=== PATIENT | female | born 1980 | race Caucasian/White ===

== ENCOUNTER → 2018-05-29 | Outpatient (CLI) | payer OTHER ==
[~2018-05-29] MED LIST: CIT20 PO; MET800 PO; PER PO
--- NOTE | 2018-05-29 15:55 | RADIOLOGY IMAGING REPORT ---
FACILITY: [facility] [place] PATIENT NAME: Zuri Burger : 1980 MR: [id number] V: [id number] EXAM DATE: ORDERING PHYSICIAN: KALEY BIRD TECHNOLOGIST: Location: [facility] [place] Patient: Zuri Burger : 1980 Visit/Account:[id number] Date of Sevice: 05/29/2018 VENOUS DOPP LOW LEFT EXTREMITY HISTORY: Left leg edema, stiffness, erythema, and warmth COMPARISON: None. FINDINGS: Grayscale, duplex and color Doppler interrogation of the left lower extremity deep veins from common femoral vein to proximal calf was completed. The greater saphenous vein in the proximal thigh was shavonne luated using similar technique. Common femoral vein - Negative. Femoral vein - Negative. Deep femoral vein - Negative. Popliteal vein - Negative. Visualized deep calf veins - Negative. Popliteal fossa: Negative. Greater saphenous vein in the proximal thigh: Negative. IMPRESSION: No evidence for DVT. Report Dictated By: Dexter Charlton MD at 05/29/2018 3:51 PM Report E-Signed By: Dexter Charlton MD at 05/29/2018 3:51 PM [id number]
== END ==
LOC: US 14:49
PROVIDERS: ATTEND Nurse Practitioner Family
DX: M79.605 Pain in left leg (principal)

== ENCOUNTER → 2018-09-26 | Outpatient (CLI) | payer OTHER | LOC: RESP 07:34 | PROVIDERS: ATTEND Nurse Practitioner Family | DX: G47.33 Obstructive sleep apnea (adult) (pediatric) (principal) ==

== ENCOUNTER 2018-10-21 18:26 | Emergency (ER) | payer OTHER ==
--- NOTE | 2018-10-21 18:31 | ER Report ---
History and Physical Time Seen By MD: 18:31 HPI/ROS CHIEF COMPLAINT: Suicidal ideation HISTORY OF PRESENT ILLNESS: This is a 38-year-old female presents to the emergency department for suicidal ideation. Patient states that she's had a long history of depression, suicidal thoughts in the past, however the last couple of weeks she's had increased suicidal thoughts with increased depression. She states that today she got off the phone with her insurance company, they were not going to pay a home sleep study Bill, she became angry and depressed and used a parous scissors and lacerated her left forearm, she has multiple superficial lacerations, she did clean them up at home, no active bleeding. Most recently her thoughts were to use the exhaust of her car to kill her self. Patient is very tearful, would like to be admitted to the behavioral health unit. No fevers or chills. No nausea or vomiting. Chest pain or shortness breath. REVIEW OF SYSTEMS: Constitutional: No fever, no chills. Eyes: No discharge. ENT: No sore throat. Cardiovascular: No chest pain, no palpitations. Respiratory: No cough, no shortness of breath. Gastrointestinal: No abdominal pain, no vomiting. Genitourinary: No hematuria. Musculoskeletal: No back pain. Skin: As above. Neurological: No headache. Psychological: As above. Allergies: Coded Allergies: No Known Drug Allergies (Unverified , 10/09/12) Home Meds Reported Medications Oxycodone/Acetaminophen (OXYCODONE/ACETAMINOPHEN 5MG/325 MG) 5 Mg/325 Mg Tab, 1 TAB PO Q6H PRN, #15 10/09/12 Metaxalone (Skelaxin) 800 Mg Tab, 800 MG PO TID PRN, #30 10/09/12 Citalopram Hydrobromide (Celexa) 20 Mg Tab, 40 MG PO DAILY 10/09/12 Past Medical/Surgical History Patient has a past medical and surgical history of back pain, wears glasses, depression, previous suicide attempt, with some teeth extraction. Reviewed Nurses Notes: Yes Hx Smoking: No Hx Substance Use Disorder: No Constitutional Vital Sign - Last 24 Hours 10/21/18 18:32 Pulse 101 Resp 24 B/P (MAP) 143/108 Pulse Ox 90 O2 Delivery Room Air Physical Exam General Appearance: The patient is alert, has no immediate need for airway protection and no signs of toxicity. Eyes: Pupils equal and round no pallor or injection. ENT, Mouth: Mucous membranes are moist. Respiratory: There are no retractions, lungs are clear to auscultation. Cardiovascular: Regular rate and rhythm. Gastrointestinal: Abdomen is soft and non tender, no masses, bowel sounds normal. Neurological: Alert and oriented 4. Moving all extremities. Following all commands. No focal neuro deficits. Skin: Multiple superficial lacerations to the right forearm, no active bleeding, nothing suturable, CMS intact. Musculoskeletal: Neck is supple non tender. Extremities are nontender, nonswollen and have full range of motion. Psychological: Patient is tearful, she is making eye contact, very forthcoming with her plans and her suicidal thoughts. She states that she's been under increased stress. DIFFERENTIAL DIAGNOSIS: After history and physical exam differential diagnosis was considered for suicidal ideation. Medical Decision Making Data Points Result Diagram: 10/21/18 18510/21/18 185 Laboratory Hematology Test 10/21/18 18:33 10/21/18 18:43 10/21/18 18:51 Urine Color Yellow Urine Clarity Slightly-cloudy Urine pH 5.0 pH (4.8-9.5) Urine Specific [place] 1.021 Urine Protein Negative mg/dL (NEGATIVE) Urine Glucose (UA) Negative mg/dL (NEGATIVE) Urine Ketones Negative mg/dL (NEGATIVE) Urine Blood Negative (NEGATIVE) Urine Nitrite Negative (NEGATIVE) Urine Bilirubin Negative (NEGATIVE) Urine Urobilinogen 2.0 mg/dL (0.2-1.9) Urine Leukocyte Esterase Trace (NEGATIVE) Urine RBC 1 /HPF (0-2/HPF) Urine WBC 2 /HPF (0-5/HPF) Urine Squamous Epithelial Cells Many /LPF (</=FEW) Urine Bacteria Few /HPF (NONE-FEW) Urine Mucus None /HPF (NONE-FEW) Urine HCG, Qualitative Negative (NEGATIVE) Urine Opiates Screen Negative Urine Barbiturates Screen Negative Ur Tricyclic Antidepressants Screen Negative Urine Phencyclidine Screen Negative Urine Amphetamines Screen Negative Urine Benzodiazepines Screen Negative Urine Cocaine Screen Negative Urine Cannabinoids Screen Negative Red Blood Count 5.13 M/uL (4.17-5.56) Mean Corpuscular Volume 91.2 fL (80.0-96.0) Mean Corpuscular Hemoglobin 30.8 pg (26.0-33.0) Mean Corpuscular Hemoglobin Concent 33.8 g/dL (32.0-36.0) Red Cell Distribution Width 13.0 % (11.5-14.5) Mean Platelet Volume 6.8 fL (7.2-11.1) Neutrophils (%) (Auto) 67.4 % (39.4-72.5) Lymphocytes (%) (Auto) 25.0 % (17.6-49.6) Monocytes (%) (Auto) 5.6 % (4.1-12.4) Eosinophils (%) (Auto) 1.6 % (0.4-6.7) Basophils (%) (Auto) 0.4 % (0.3-1.4) Nucleated RBC Relative Count (auto) 0.1 /100WBC Neutrophils # (Auto) 7.4 K/uL (2.0-7.4) Lymphocytes # (Auto) 2.7 K/uL (1.3-3.6) Monocytes # (Auto) 0.6 K/uL (0.3-1.0) Eosinophils # (Auto) 0.2 K/uL (0.0-0.5) Basophils # (Auto) 0.0 K/uL (0.0-0.1) Nucleated RBC Absolute Count (auto) 0.01 K/uL Sodium Level 138 mmol/L (137-145) Potassium Level 3.8 mmol/L (3.5-5.0) Chloride Level 100 mmol/L (98-107) Carbon Dioxide Level 28 mmol/L (22-31) Blood Urea Nitrogen 14 mg/dl (7-18) Creatinine 0.70 mg/dl (0.52-1.04) Glomerular Filtration Rate Calc > 60.0 Random Glucose 89 mg/dl (75-110) Calcium Level 9.9 mg/dl (8.4-10.2) Magnesium Level 1.9 mg/dl (1.7-2.2) Total Bilirubin 0.3 mg/dl (0.2-1.3) Aspartate Amino Transf (AST/SGOT) 25 U/L (0-35) Alanine Aminotransferase (ALT/SGPT) 26 U/L (0-56) Alkaline Phosphatase 107 U/L (0-126) Total Protein 8.2 g/dl (6.3-8.2) Albumin 4.6 g/dl (3.5-5.0) Salicylates Level < 10 mg/L Salicylate Last Dose Date unk Acetaminophen Level < 10 ug/ml Serum Alcohol < 10 mg/dl Chemistry Test 10/21/18 18:33 10/21/18 18:43 10/21/18 18:51 Urine Color Yellow Urine Clarity Slightly-cloudy Urine pH 5.0 pH (4.8-9.5) Urine Specific [place] 1.021 Urine Protein Negative mg/dL (NEGATIVE) Urine Glucose (UA) Negative mg/dL (NEGATIVE) Urine Ketones Negative mg/dL (NEGATIVE) Urine Blood Negative (NEGATIVE) Urine Nitrite Negative (NEGATIVE) Urine Bilirubin Negative (NEGATIVE) Urine Urobilinogen 2.0 mg/dL (0.2-1.9) Urine Leukocyte Esterase Trace (NEGATIVE) Urine RBC 1 /HPF (0-2/HPF) Urine WBC 2 /HPF (0-5/HPF) Urine Squamous Epithelial Cells Many /LPF (</=FEW) Urine Bacteria Few /HPF (NONE-FEW) Urine Mucus None /HPF (NONE-FEW) Urine HCG, Qualitative Negative (NEGATIVE) Urine Opiates Screen Negative Urine Barbiturates Screen Negative Ur Tricyclic Antidepressants Screen Negative Urine Phencyclidine Screen Negative Urine Amphetamines Screen Negative Urine Benzodiazepines Screen Negative Urine Cocaine Screen Negative Urine Cannabinoids Screen Negative White Blood Count 10.9 k/uL (4.5-11.0) Red Blood Count 5.13 M/uL (4.17-5.56) Hemoglobin 15.8 g/dL (12.0-16.0) Hematocrit 46.7 % (34.0-47.0) Mean Corpuscular Volume 91.2 fL (80.0-96.0) Mean Corpuscular Hemoglobin 30.8 pg (26.0-33.0) Mean Corpuscular Hemoglobin Concent 33.8 g/dL (32.0-36.0) Red Cell Distribution Width 13.0 % (11.5-14.5) Platelet Count 369 K/uL (150-450) Mean Platelet Volume 6.8 fL (7.2-11.1) Neutrophils (%) (Auto) 67.4 % (39.4-72.5) Lymphocytes (%) (Auto) 25.0 % (17.6-49.6) Monocytes (%) (Auto) 5.6 % (4.1-12.4) Eosinophils (%) (Auto) 1.6 % (0.4-6.7) Basophils (%) (Auto) 0.4 % (0.3-1.4) Nucleated RBC Relative Count (auto) 0.1 /100WBC Neutrophils # (Auto) 7.4 K/uL (2.0-7.4) Lymphocytes # (Auto) 2.7 K/uL (1.3-3.6) Monocytes # (Auto) 0.6 K/uL (0.3-1.0) Eosinophils # (Auto) 0.2 K/uL (0.0-0.5) Basophils # (Auto) 0.0 K/uL (0.0-0.1) Nucleated RBC Absolute Count (auto) 0.01 K/uL Glomerular Filtration Rate Calc > 60.0 Calcium Level 9.9 mg/dl (8.4-10.2) Magnesium Level 1.9 mg/dl (1.7-2.2) Total Bilirubin 0.3 mg/dl (0.2-1.3) Aspartate Amino Transf (AST/SGOT) 25 U/L (0-35) Alanine Aminotransferase (ALT/SGPT) 26 U/L (0-56) Alkaline Phosphatase 107 U/L (0-126) Total Protein 8.2 g/dl (6.3-8.2) Albumin 4.6 g/dl (3.5-5.0) Salicylates Level < 10 mg/L Salicylate Last Dose Date unk Acetaminophen Level < 10 ug/ml Serum Alcohol < 10 mg/dl Toxicology Test 10/21/18 18:43 10/21/18 18:51 Urine Opiates Screen Negative Urine Barbiturates Screen Negative Ur Tricyclic Antidepressants Screen Negative Urine Phencyclidine Screen Negative Urine Amphetamines Screen Negative Urine Benzodiazepines Screen Negative Urine Cocaine Screen Negative Urine Cannabinoids Screen Negative Salicylates Level < 10 mg/L Salicylate Last Dose Date unk Acetaminophen Level < 10 ug/ml Serum Alcohol < 10 mg/dl Urinalysis Test 10/21/18 18:33 Urine Color Yellow Urine Clarity Slightly-cloudy Urine pH 5.0 pH (4.8-9.5) Urine Specific [place] 1.021 Urine Protein Negative mg/dL (NEGATIVE) Urine Glucose (UA) Negative mg/dL (NEGATIVE) Urine Ketones Negative mg/dL (NEGATIVE) Urine Blood Negative (NEGATIVE) Urine Nitrite Negative (NEGATIVE) Urine Bilirubin Negative (NEGATIVE) Urine Urobilinogen 2.0 mg/dL (0.2-1.9) Urine Leukocyte Esterase Trace (NEGATIVE) Urine RBC 1 /HPF (0-2/HPF) Urine WBC 2 /HPF (0-5/HPF) Urine Squamous Epithelial Cells Many /LPF (</=FEW) Urine Bacteria Few /HPF (NONE-FEW) Urine Mucus None /HPF (NONE-FEW) Urine HCG, Qualitative Negative (NEGATIVE) ED Course/Re-evaluation ED Course The patient was admitted to room. History is were obtained. Differential diagnoses were considered. A CBC, CMP and psych panel were collected, a UA and tox screen were collected. Lab studies were unremarkable, negative tox screen, negative UA. I did review the results with the patient, I also spoke with Dr. Taylor as noted below, patient will be admitted to the behavioral health unit, she has signed in voluntarily. I did update the patient on her status, she is still agreeable with a voluntary admission, she is tearful, she does realize that she needs assistance. She no other questions or concerns at this time. There were no dressings recovers apply to the patient's right forearm as this is a safety concern in the behavioral health unit, sutures were not indicated. 10/21/2018 7:48:50 pm The patient was seen and evaluated by [facility], the patient did sign into the behavioral health unit on a voluntary basis. 10/21/2018 8:00:48 pm this week with Dr. Taylor, she has agreed to admit the patient to the behavioral health units for suicidal ideation. Decision to Disposition Date: Oct 21, 2018 Decision to Disposition Time: 20:01 Depart Departure Latest Vital Signs Vital Signs Date Time Temp Pulse Resp B/P (MAP) Pulse Ox O2 Delivery O2 Flow Rate FiO2 10/21/18 18:32 101 24 143/108 90 Room Air Impression: Primary Impression: Suicidal ideations Additional Impression: Depression Condition: Improved Disposition: XFER TO [facility] Problem Qualifiers Additional Impression: Depression Depression Type: unspecified Qualified Codes: F32.9 - Major depressive disorder, single episode, unspecified [employer]AT[employer]ICE [employer]ION REPAIRMAN-BC Oct 21, 2018 18:31
[2018-10-21 18:32] VITALS: BP 143/108
[2018-10-21] MEDS ORDERED: DIPHTH/TETANUS/ACEL. PERTUSSIS IM ONLY ONE (18:50)
[2018-10-21 19:41] LABS: PLATELET COUNT, AUTOMATED 369 K/uL (150-450)
== END 2018-10-21 20:40 ==
LOC: ER 18:41
DX: F32.9 Major depressive disorder, single episode, unspecified (principal); R45.851 Suicidal ideations
CPT/HCPCS: 80305; 80320; 80329; 81001; 81025; 82040; 82247; 82310; 82374; 82435; 82565; 82947; 83735; 84075; 84132; 84155; 84295; 84443; 84450; 84460; 84520; 85025; 90471; 90715; 99284

== ENCOUNTER 2018-10-21 20:11 | Inpatient (IN) | payer OTHER ==
[~2018-10-21] VITALS: Ht 165.1 cm; Wt 124.7 kg
[2018-10-21] MEDS ORDERED: MAG HYD/AL HYD/SIMETH 30ML UDC PO PRN (20:55)
[2018-10-21] MEDS ORDERED: IBUPROFEN 800 MG TAB PO PRN (20:55)
[2018-10-21] MEDS ORDERED: ACETAMINOPHEN 325 MG TAB PO PRN (20:55)
[2018-10-21 21:08] VITALS: BP 140/90
[2018-10-21] MEDS: traZODone HCL 50 MG TAB PO PRN (22:13)
[2018-10-22 06:07] VITALS: BP 127/78
[2018-10-22] MEDS: MULTIVITAMINS PO SCH (08:31)
[2018-10-22] MEDS ORDERED: VENLAFAXINE XR 75 MG CAPCR PO SCH (09:00)
[2018-10-22] MEDS ORDERED: VENLAFAXINE XR 75 MG CAPCR PO ONE (10:10)
[2018-10-22] MEDS: traZODone HCL 50 MG TAB PO PRN (20:48)
[2018-10-23 06:08] VITALS: BP 121/73
[2018-10-23] MEDS: MULTIVITAMINS PO SCH (08:25)
[2018-10-23] MEDS: VENLAFAXINE XR 75 MG CAPCR PO SCH (08:25)
--- NOTE | 2018-10-23 14:24 | BHS Progress Note ---
[facility] - Subjective Progress Notes Subjective We met with Zuri and her this morning for treatment team. We discussed her reasons for admission, needs, strengths and things that we need to work on--specifically, learning new coping skills and reinforcing what she learned in the past in DBT. We want to address the factors that are interfering with her getting another job. She admits that she lacks assertiveness skills and that this hinders her getting what she needs. We discussed her cutting also and targeting self-harm in her therapy. She has tolerated the increased dose of Effexor well and I plan to continue this. She had some trouble adjusting to the oxygen last night. I ordered oxygen per nasal cannula at 2 L while asleep and we elevated the head of her bed. Suicidal Ideation: None Homicidal Ideation: None [facility] - Objective Physical Exam Vital Signs Vital Signs 10/23/18 06:08 Temp 98.4 Pulse 71 Resp 15 B/P (MAP) 121/73 (89) Pulse Ox 97 O2 Delivery Nasal Cannula O2 Flow Rate 1.5 Muscle Strength and Tone: WNL Gait and Station: Steady [facility] Medications Reviewed: Side Effects, Benefits of Medication, Risks Allergies Reviewed: Yes Mental Status Exam General Appearance: Casual, Well Groomed, Good Eye Contact, Cooperative, Polite, Good Interaction; No Psychomotor Agitation, No Psychomotor Retardation Speech: Clear, Spontaneous, Normal Rate, Normal Rhythm, Normal Volume, Normal Tone Mood: Other (Depression is 2/10 today. Feels hopeful that she is getting help. ) Affect: Full and Appropriate Thought Process: Organized, Logical, Goal Directed Thought Content: No Suicidal Ideation, No Homicidal Ideation, No Delusions, No Auditory Halllucinations, No Visual Hallucinations, No Ideas of Reference, No Obsessions, No Compulsions Sensorium: Clear Cognition: Alert & Oriented-Person, Alert & Oriented-Place, Alert & Oriented-T sonido, [id number], Other Memory: Immediate, Recent, Remote, Other Intelligence: Below Average Insight Judgment: Good [facility] Assessment and Plan [id number] Encounter Date: Oct 23, 2018 [id number] Encounter Time: 10:00 [facility] Plan: Admit to Unit, Necessary Precautions, Individual/Group Therapy, Admin/Titrate Meds, Educate Patient Problems: (1) Major depressive disorder, recurrent (2) Suicidal ideations Status: Resolved (3) Obesity Status: Chronic (4) Obstructive sleep apnea of adult Status: Chronic (5) Generalized anxiety disorder Status: Chronic Condition Zuri is working hard to get the maximum she can from this admission. We will continue the Effexor at 150 mgs daily. I have ordered a CPAP titration study. We are working on a wellness recovery plan anticipating discharge on Sunday. Problem Qualifiers (1) Obesity: Body mass index: BMI 45.0-49.9 JODI HERNANDEZ DO Oct 23, 2018 14:23
--- NOTE | 2018-10-23 16:41 | HISTORY AND PHYSICAL ---
DATE OF ADMISSION: October 21, 2018 DATE OF EVALUATION: October 22, 2018, at 0930 IDENTIFYING INFORMATION Zuri Burger is a 38-year-old female who is voluntarily admitted from the Emergency Department to our Behavioral Health Unit. She has no prior admissions to [facility]. PRESENTING PROBLEMS AND CHIEF COMPLAINT Zuri presented to the Emergency Room on the evening of 10/21/2018 complaining that she was feeling suicidal. She stated that she had a long history of depression and had had suicidal thoughts in the past, but for the two weeks prior to admission, the suicidal thoughts has increased along with increasing depression. Her immediate stressor was having recently gotten off of the phone with her insurance company, who was not willing to pay for a home sleep study. She became angry and depressed and began using a pair of scissors to cut her left forearm. She presented with multiple superficial longitudinal lacerations to her left arm, and she did clean them up at home before coming to the Emergency Room. She also admitted that she had thoughts of using car exhaust to kill herself. She was very tearful and requesting admission to Behavioral Health. HISTORY OF PRESENT ILLNESS AND CURRENT MEDICATIONS I first met Zuri at 9:30 in the morning on 10/22/2018. At this time, she says that things really began to get difficult after she lost her job at the [employer] in February 2018. She started to feel more and more depressed after that. She went to see Malinda Saenz, Family Nurse Practitioner, and started taking CITALOPRAM, but had an adverse reaction to that medication, noticing that she had double vision, so she stopped taking the CITALOPRAM. She says that she was also seeing a therapist at the [facility] at because she was having suicidal thoughts. Her counselor recommended that she come to the Emergency Room. Although Zuri admits that she has had depression off and on for many years, losing her job was the biggest recent trigger. She says she was also put on a Do Not Hire list and does not understand why. She feels like this was a retaliation for something that she had done, but she does not understand what it was. She feels betrayed by her former employer. She admits to feelings of self-doubt, rejection sensitivity, feelings of sadness, inability to experience pleasure in most things, feeling "worthless." She is overweight, but has noticed a decrease in appetite lately and has actually lost about 15 pounds because of not wanting to eat. Zuri also has a number of other stressors. Her brother has epilepsy and mental health issues, and she assists in his care. She also is partially responsible for her parents since her mother has health problems and mobility difficulties. Her is a great support to her, but when she talks to him about her mental health concerns, he gets upset, so she avoids doing this. Zuri also has a past psychiatric history. She started seeing a counselor in high school after her grandmother . She was very close to her grandmother, and her grandmother lived at home with her. She started to go to [facility] and even completed a year of DBT treatment. She has never been hospitalized. Her only allergy to psychiatric medication is the one mentioned earlier, to CITALOPRAM. In 2000, she admits that she took an overdose of sleeping pills, but never sought medical attention. She began doing self-harm at about age 19 and has continued to do that intermittently over the years. REVIEW OF SYMPTOMS Zuri affirms a number of symptoms of major depression as indicated above. In addition, she admits that she often feels anxious and worries all the time. Occasionally this interferes with her ability to sleep and relax. She has had some very minimal episodes of increased energy and elevated mood, but this only lasts a few hours and never more than a day and does not interfere with her sleep. She has had "little" panic attacks. She has no symptoms of OCD or compulsive need to check things or organize things. She denies any history of experiencing extraordinary trauma or symptoms of PTSD. She denies any psychotic symptoms. She denies ever having had a head injury or a seizure. FAMILY PSYCHIATRIC HISTORY Zuri's mother suffers with depression, and she believes her father also has seasonal affective disorder. Her brother is on disability, and she believes that his diagnosis is schizophrenia. PAST MEDICAL HISTORY Zuri has been seeing a family nurse practitioner in [place], Malinda Saenz, for medical care. She recently underwent an overnight home sleep study. We requested the results of that study, which show that she does have mild obstructive sleep apnea with an AHI of 8.8 and desaturations down to 75%. She has not been able to follow up with Ms. Saenz because of financial concerns, so was unaware of this diagnosis. She denies any known allergies to any other medications. Only previous surgery is tonsillectomy. She is not a smoker. She has never been and has an IUD in place. SOCIAL HISTORY Zuri grew up in [place], [place]. She graduated from high school as the valedictorian of her class and then completed master's, graduate, and postgraduate training at and has a master's in communication. She is , but has no children. She has no record of service or legal involvement. SUBSTANCE ABUSE Zuri drinks alcohol only on rare occasions. She denies use of other substances including marijuana. RISK FACTORS I inquired about risk factors, and Zuri says that she does not own a gun. She admits that she has considered suicide by drowning or using carbon monoxide. PHYSICAL EXAMINATION Zuri was evaluated in the Emergency Room, and other than the superficial lacerations to her left forearm, they found no additional new pathology. Zuri is obese, weighs 275 pounds, and has a BMI of 46. VITAL SIGNS: Her vital signs on admission to [facility] are as follows: Temperature 99.0, pulse 99, blood pressure 140/90, pulse oximetry 93% on room air. LABORATORY STUDIES An admitting CBC is unremarkable. An admitting chem panel is also entirely within normal limits with a random glucose of 89. TSH is 1.6. Transaminases and renal functions are also normal. Urine toxicology is entirely negative. Urinalysis shows no evidence of infection or kidney disease. MENTAL STATUS EXAMINATION I interviewed the patient in team on the morning of 10/22/2018 at 9:30 a.m. At this time, she presents as a well-developed, although very heavy young woman appearing about her stated age of 38 years. She is appropriately dressed in hospital scrubs, and grooming is neat and clean. It is notable that she has a metal stud at the base of her nose between her eyes. Her attitude is cooperative throughout this interview with good eye contact. She is alert, oriented to all spheres, and to the context of this interview. She describes her mood as depressed and anxious, and her affect is tearful and consistent with that expressed mood, although she does have affective reactivity. There is no evidence of psychomotor retardation. Speech is normal in rate and rhythm. Her responses are clear, logical, and goal directed. There is no evidence of psychotic thought processes, and she denies any history of auditory or visual hallucinations. She admits that she has been thinking about suicide and about how it would be okay if she since people would get over it. She has been thinking about methods to kill herself. Her memory for immediate, recent, and long-term events appears to be intact based on this interview. Her intelligence is judged to be above average. She shows good insight into her need for therapy and to learn better ways to cope. ASSESSMENT Zuri meets criteria for major depressive episode. She began to have depression as a teenager following her grandmother's and has a prior suicide attempt. She also meets criteria for generalized anxiety disorder. She has a number of life stressors which are contributing to her depression and anxiety, including unemployment, feeling rejected at her last job, feeling burdened by the care of her parents and brother, and having been rejected for other employment. She has moderate risk for suicide including her prior attempt and the fact that she has considered specific plans to kill herself. She says that she would not actually use carbon monoxide, however, since it would cost money to buy the equipment that she would need, and she would not want to spend any money on that. She is somewhat socially isolated with no real friends even though she does have a lot of contact with her family. She has difficulty accessing mental health as well as medical services because of financial constraints. Protective factors include her supportive relationship with her and the fact that she feels responsible for caring for her family. She is highly motivated to learn new coping skills and desperately wants to get better. INITIAL PSYCHIATRIC DIAGNOSES 1. Major depressive episode, recurrent, severe. 2. Generalized anxiety disorder. 3. Mild obstructive sleep apnea. 4. Obesity. PLAN 1. Zuri is admitted to Behavioral Health and placed on suicide precautions. We have begun a program of individual and group therapy focusing on increasing distress tolerance skills. I have also asked the social work technical support intern to spend some individual time with her to help work on interview skills and how practical considerations for how she can get another job. We will increase her antidepressant, Effexor, from 75 mg daily to 150 mg daily. 2. Zuri needs to be on CPAP, and I am scheduling an overnight sleep study to include CPAP titration. 3. I will be in contact with Malinda Saenz, her primary care provider, to discuss her care. 4. Estimated length of stay is three days. ANTONELLA
[2018-10-23] MEDS: traZODone HCL 50 MG TAB PO PRN (21:06)
[2018-10-24 06:33] VITALS: BP 105/51
[2018-10-24] MEDS: MULTIVITAMINS PO SCH (08:26)
[2018-10-24] MEDS: VENLAFAXINE XR 75 MG CAPCR PO SCH (08:26)
--- NOTE | 2018-10-24 12:06 | BHS Progress Note ---
S - Subjective Progress Notes Subjective Zuri has made excellent progress. She did a lot of work, yesterday, with our social work internal medicine nurse on assertiveness skills as well as practical strategies for helping Zuri get back to work. She learned about [employer] and plans to follow up with them. We re-enforced this today on rounds. We talked about Zuri's social support network and the importance of having people who can give her good feedback and advice. Zuri has no close friends and mostly relies on her for this. In some cases, she feels she needs more. We agreed that a counselor who can take a more directive, active role in her therapy might be a better choice. Finally, we touched on Zuri's obesity and risk of diabetes. Her father and brother are both diabetic and her BMI puts her at high risk for this and other health problems. We discussed strategies for weight loss and I made a referral for a dietary consult. After our morning session, I contacted Malinda Saenz who will be following up with Zuri. We discussed her ADELE, obesity, depression treatment and I learned about Malinda's concern about Ozzies vitamin D deficiency. I ordered a level for in the morning. Suicidal Ideation: None Homicidal Ideation: None BHS - Objective Physical Exam Vital Signs Vital Signs 10/24/18 06:33 Temp 99.0 Pulse 70 Resp 14 B/P (MAP) 105/51 (69) Pulse Ox 96 O2 Delivery Nasal Cannula O2 Flow Rate 2.0 Muscle Strength and Tone: WNL Gait and Station: Steady BHS Medications Reviewed: Side Effects, Benefits of Medication, Risks Allergies Reviewed: Yes Mental Status Exam General Appearance: Casual, Well Groomed, Good Eye Contact, Cooperative, Polite, Good Interaction; No Psychomotor Agitation, No Psychomotor Retardation Speech: Clear, Spontaneous, Normal Rate, Normal Rhythm, Normal Volume, Normal Tone Mood: Euthymic Affect: Full and Appropriate Thought Process: Organized, Logical, Goal Directed Thought Content: No Suicidal Ideation, No Homicidal Ideation, No Delusions, No Auditory Halllucinations, No Visual Hallucinations, No Ideas of Reference, No Obsessions, No Compulsions Sensorium: Clear Cognition: Alert & Oriented-Person, Alert & Oriented-Place, Alert & Oriented-Time, [id number], Other Memory: Immediate, Recent, Remote, Other Intelligence: Below Average Insight Judgment: Good S Assessment and Plan [id number] Encounter Date: Oct 24, 2018 [id number] Encounter Time: 10:20 S Plan: Admit to Unit, Necessary Precautions, Individual/Group Therapy, Admin/Titrate Meds, Educate Patient Problems: (1) Major depressive disorder, recurrent Assessment & Plan: Ozzies mood is much better with this combination of treatments. We plan on releasing her tomorrow with the increased Effexor XR at 150 mgs. (2) Suicidal ideations Status: Resolved (3) Obesity Status: Chronic Assessment & Plan: I ordered a dietary consult to give Zuri information about weight loss strategies. We also discussed other tools like Weight Watchers and calorie counting apps to help her. I also ordered a lipid profile and hemoglobin A1c for in the morning. (4) Obstructive sleep apnea of adult Status: Chronic Assessment & Plan: I spoke to Zuri Bhatt's outpatient provider about her ADELE. She is aware of the problem and the difficulties Zuri has had with her insurance company getting her study paid for. I am recommending continuing supplemental oxygen at 2 liters at night for now. (5) Generalized anxiety disorder Status: Chronic Assessment & Plan: Improved. (6) Vitamin D deficiency Assessment & Plan: I learned about this problem from Malinda Saenz. I have ordered a follow-up vitamin D level with the am labs. Problem Qualifiers (1) Obesity: Body mass index: BMI 45.0-49.9 JODI HERNANDEZ DO Oct 24, 2018 12:06
--- NOTE | 2018-10-24 15:38 | Medical Nutrition Therapy ---
Nutritional Education Nutrition Education Topic: Weight Loss Diet Learning Readiness: Eager, Interested Teaching Methods: Discussion, Handout Response to Teaching: Verbalize understanding Teaching Recipient: Patient Nutrition Counselin/28: internal medicine nurse provided pt with weight loss tips handout. Pt expressed to research intern that she was interested in tips about cooking, how not to mindlessly snack, and grocery shopping to help her with weight loss. Pt and research program internship discussed grocery store tips, reading food labels, portion sizes, practicing mindful eating, and physical activity. internal medicine nurse provided pt with the plate method handout, and the Academy [employer]etics "weight loss tips" and "sample one day meal plan" handouts. internal medicine nurse also gave pt the [facility] dietitian's card in case pt had any additional questions and/or was interested in setting up an out patient nutrition consult with an [facility] dietitian. -ALIDA Nutrition Monitoring & Eval Nutritional Comment: 10/24: internal medicine nurse provided pt with weight loss tips handout. Pt expressed to research intern that she was interested in tips about cooking, how not to mindlessly snack, and grocery shopping to help her with weight loss. Pt and research program internship discussed grocery store tips, reading food labels, portion sizes, practicing mindful eating, and importance of physical activity. internal medicine nurse provided pt with the plate method handout, and the [employer] "weight loss tips" and "sample one day meal plan" handouts. internal medicine nurse also gave pt the [facility] dietitian's card in case pt had any additional questions and/or was interested in setting up an out patient nutrition consult with an [facility] dietitian. -TIMMY LOMBARDO Oct 24, 2018 13:10
[2018-10-24] MEDS: traZODone HCL 50 MG TAB PO PRN (21:00)
[2018-10-25] MEDS: VENLAFAXINE XR 75 MG CAPCR PO SCH (08:14)
[2018-10-25] MEDS: MULTIVITAMINS PO SCH (08:14)
[2018-10-25] MEDS ORDERED: VENL150C61 PO (10:31)
[2018-10-25] MEDS ORDERED: CHOL10005 PO (10:45)
[2018-10-25 11:25] VITALS: BP 149/102
--- NOTE | 2018-10-27 00:36 | DISCHARGE SUMMARY ---
DATE OF ADMISSION: October 21, 2018 DATE OF DISCHARGE: October 25, 2018 ATTENDING PHYSICIAN Bonnie Taylor DO TYPE OF ADMISSION Voluntary. TYPE OF DISCHARGE Routine. DISCHARGE DIAGNOSES 1. Major depressive episode, recurrent, severe. 2. Generalized anxiety disorder. 3. Mild obstructive sleep apnea. 4. Obesity with a body mass index of 46. 5. Vitamin D deficiency. INITIAL PRESENTATION AND REASON FOR ADMISSION Zuri Burger is a 38-year-old female who was admitted through the Emergency Room complaining of feeling suicidal. She stated that she had had a long history of depression and had experienced suicidal thoughts in the past, but for the two weeks prior to admission, the suicidal thoughts had increased along with increasing depression. She cited a number of recent stressors including having difficulty getting her insurance company to pay for a home sleep study. She became angry and depressed about this and began using a pair of scissors to cut her left forearm. She presented to the Emergency Room with multiple superficial longitudinal lacerations to her left arm. She had been considering using car exhaust to kill herself. She was very tearful and depressed upon admission to Behavioral [facility]. MEDICATIONS ON ADMISSION Zuri had been seeing Malinda Saenz, a family nurse practitioner in [place]. She was taking Effexor XR 75 mg daily. HOSPITAL COURSE AND TREATMENT PROVIDED Zuri was admitted to Behavioral Health and placed on suicide precautions. We began a program of individual and group therapy focusing on distress tolerance skills. We also spent some time working with Zuri on practical considerations for how she can get another job. I increased Zuri's Effexor XR to 150 mg daily. She tolerated this well. I also ordered an overnight CPAP titration study, but this was not able to be completed during this hospitalization, so I filled out orders for this study. I also spoke with Malinda Saenz, who is Zuri's primary care provider, to discuss her care. We talked specifically about the importance of the CPAP titration study and our frustration in being able to get this reimbursed by her insurance company. Since we were not able to get the CPAP titration study done during this stay, I ordered oxygen per nasal cannula that night, and we elevated the head of Zuri's bed. Malinda also expressed concern about Zuri's vitamin D levels. I ordered another vitamin D study, which showed that Zuri is still low in that vitamin. We also talked about the importance of losing weight to manage obstructive sleep apnea, and Zuri understands that that is the primary risk factor for developing obstructive sleep apnea. I asked for a dietary consult, and a member of the dietary staff came up to provide education to Zuri about strategies for weight loss. During this stay, Zuri actively participated in individual and group therapy with sessions focusing on harm reduction strategies, increasing distress tolerance, and developing an outpatient safety plan. We also met with her during team rounds on one occasion during this stay. RESULTS OF TESTING An admitting CBC was unremarkable. An admitting chem panel was also entirely within normal limits with a random glucose of 89. TSH was 1.6. Transaminases and renal functions also were normal. Urine toxicology was entirely negative, and urinalysis showed no evidence of infection or kidney disease. I also ordered a hemoglobin A1c, which was 5.3. Triglycerides fasting were 88. LDL cholesterol was 96 and total cholesterol 152. HDL cholesterol was 38, giving Zuri a LDL to HDL ratio of 2.52. I also ordered a repeat vitamin D level, which is low at 24. FINAL CONDITION AT DISCHARGE Vital signs at discharge, Zuri's temperature was 97.6, pulse 110, respirations 18, blood pressure 149/102, and pulse oximetry 91%. This last blood pressure seemed to be an isolated episode of diastolic hypertension. Her blood pressures otherwise throughout this stay were in the normal range. I last spoke with Zuri about 10:30 on the morning of discharge, 10/25/18. At this time, she is in excellent spirits and anxious to return home. She describes her mood as excellent, and she is no longer feeling depressed. Her anxiety is also improved. She is not having any thoughts about suicide or self- harm. She reports that her sleep has also been adequate, although she has had some trouble getting used to the oxygen at night. Affect is excellent, memory unimpaired, speech is normal. There is no evidence of psychotic symptoms. Zuri also verbalizes an understanding of her outpatient treatment plan and a willingness to continue with these recommendations in order to get better. Zuri is considered stable for discharge and no longer at risk for suicide. DISCHARGE INSTRUCTIONS We made Zuri an appointment to see Malinda Saenz for outpatient medication management on November 07 at 10 a.m. We also discussed alternatives for outpatient psychotherapy and made Malinda an appointment with a therapist at [facility], hoping that their DBT skills groups would be useful for her. Malinda also plans to follow up with her former therapist as well, but does not plan to continue with her. Zuri was asked to call the crisis line or return to the Emergency Room if symptoms should occur. DISCHARGE MEDICATIONS 1. Effexor XR 150 mg daily. 2. Continue oral vitamin D supplement as ordered by Malinda Saenz. 3. I also ordered oxygen per nasal cannula at 2L, to be used at night pending initiation of CPAP for her obstructive sleep apnea. ANTONELLA
== END 2018-10-25 11:30 | disposition home or self-care (01) | DRG 885 ==
LOC: BHS 20:11
PROVIDERS: ADMIT Psychiatry & Neurology Psychiatry; ATTEND Psychiatry & Neurology Psychiatry
DX: F33.2 Major depressive disorder, recurrent severe without psychotic features (principal); Z68.42 Body mass index [BMI] 45.0-49.9, adult; R45.851 Suicidal ideations; F41.1 Generalized anxiety disorder; G47.33 Obstructive sleep apnea (adult) (pediatric); E66.9 Obesity, unspecified; S51.812A Laceration without foreign body of left forearm, initial encounter; X78.8XXA Intentional self-harm by other sharp object, initial encounter; Z56.0 Unemployment, unspecified; Z88.8 Allergy status to other drugs, medicaments and biological substances; Z91.5 Personal history of self-harm
CPT/HCPCS: 36415; 82306; 82465; 83036; 83718; 84478